=== PATIENT | female | born 1965 | race Caucasian/White ===

== ENCOUNTER → 2017-05-08 12:40 | Outpatient (CLI) | payer BC, SELFPAY ==
[2017-05-08 13:39] LABS: Absolute Lymphocyte Count 1.72 X10^3/ul (0.83-4.51); Absolute Neutrophil Count 3.4 X10^3/uL (2.0-7.7); Basophil# 0.01 X10^3/uL; Basophil% 0.2 % (0-1); Eosinophil# 0.07 X10^3/uL; Eosinophils% 1.3 % (0-5); Hematocrit 32.6 % (37-47); Hemoglobin 10.6 g/dl (12.0-15.0); Lymphocyte # 1.72 X10^3/ul (4.0); Lymphocyte % 31.4 % (19-41); Mean Corp Hgb Conc 32.5 g/gl (32-36); Mean Corpuscular Hgb 29.3 pg (27.0-32.0); Mean Corpuscular Volume 90.1 fL (81-99); Mean Platelet Vol. 10.5 fl (6.2-12.0); Monocyte# 0.31 X10^3/uL; Monocyte% 5.7 % (0-10); Neutrophil # 3.35 X10^3/uL (2.7-7.7); Neutrophil % 61.2 % (47-70); Platelet Count 187 K/mm3 (150-450); RBC Distribution Width CV 13.1 % (11.6-14.6); RBC Distribution Width SD 42.8 fl (35.1-43.9); Red Blood Count 3.62 M/mm3 (4.2-5.4); White Blood Count 5.5 K/mm3 (4.4-11.0)
[2017-05-08 13:40] LABS: POSITIVE COUNT NO; POSITIVE DIFFERENTIAL NO; POSITIVE MORPHOLOGY NO
== END ==
PROVIDERS: Family Provider Family Medicine; PCP Family Medicine; Visit Provider Obstetrics & Gynecology
DX: N93.9 Abnormal uterine and vaginal bleeding, unspecified (principal)
CPT/HCPCS: 36415; 85025

== ENCOUNTER 2017-06-13 07:31 | Day surgery (SDC) | payer BC, SELFPAY ==
--- NOTE | 2017-06-10 08:19 | EKG12_ITS ---
Test Reason : PRE-OP Blood Pressure : / mmHG Vent. Rate : 067 BPM Atrial Rate : 067 BPM P-R Int : 158 ms QRS Dur : 072 ms QT Int : 374 ms P-R-T Axes : 050 015 046 degrees QTc Int : 395 ms Normal sinus rhythm Normal ECG Confirmed by MELO ZUNIGA, NEVAEH ([id number]), staff editor KRISTY LOMELI ([id number]) on 06/11/2017 2:32:48 PM Referred By: Lesa Stewart Confirmed By:NEVAEH ALEJO MD
[2017-06-10 08:53] LABS: Hematocrit 36.9 % (37-47); Hemoglobin 12.1 g/dl (12.0-15.0); Mean Corp Hgb Conc 32.8 g/gl (32-36); Mean Corpuscular Volume 91.6 fL (81-99); Mean Platelet Vol. 10.7 fl (6.2-12.0); Platelet Count 191 K/mm3 (150-450); RBC Distribution Width CV 13.2 % (11.6-14.6); RBC Distribution Width SD 43.8 fl (35.1-43.9); Red Blood Count 4.03 M/mm3 (4.2-5.4); White Blood Count 5.6 K/mm3 (4.4-11.0)
[2017-06-10 08:55] LABS: Scan Indicated on CBC? Y/N NO
[2017-06-10 09:05] LABS: International Normalized Ratio 1.1; Prothrombin Time (Protime)PT. 13.7 SECONDS (11.7-14.9)
[2017-06-10 09:06] LABS: Partial Thromboplast Time 27.6 Seconds (24.1-36.2)
[2017-06-10 09:30] LABS: AST(SGOT) 10 U/L (15-37); Alanine Aminotransfer ALT/SGPT 14 U/L (13-56); Albumin, Serum 3.3 g/dL (3.2-5.0); Alkaline Phosphatase 38 U/L (45-117); Anion Gap 8 (5-15); BUN 33 mg/dL (7-18); BUN/Creat Ratio 14.2 RATIO (10-20); Bilirubin, Direct 0.06 mg/dL (0.00-0.30); Calcium,Total 8.4 mg/dL (8.5-10.1); Chloride 112 mmol/L (98-107); Creatinine, Serum 2.33 mg/dL (0.55-1.02); EST Glomerular Filtration Rate 23 mL/min (>60); Est Glom Filt Rate - Afr Amer 28 mL/min (>60); Globulin 3.7 g/dL (2.2-4.2); Glucose 79 mg/dL (74-106); Potassium 4.5 mmol/L (3.5-5.1); Sodium Level 141 mmol/L (136-145)
[2017-06-13] VITALS (17 sets, daily range): BP systolic 124–170; BP diastolic 72–93; PULSE 45–75; RESP 14–18; TEMP 36.3–37.4; O2SAT 95–100; BMI 23.3
--- NOTE | 2017-06-13 | HYST_PTH ---
PATIENT: ALICIA GAYTAN LOC: [facility] U#:[id number] AGE/SX: 51/F ROOM: RE06/13/[address]: Dr. Lesa Stewart MD : [id number] BED: DIS: 06/14/2017 SPEC #: [id number] RECD: 06/13/17 13:22 STATUS: CUONG GOMEZ #: [id number] JULIANE: 06/13/17 00:[address]: Lesa Stewart DEPT: SURGICAL PATHOLOGY RECD BY: Nicolás Alvares ENTERED: 06/13/17 13:22 SP TYPE: HYSTERECT OTHR DR: Dr. Omid Kline MD Tissues: Uterus, NOS Procedures: Surgery Specimen Level V HEADER OPERATION: Hysterectomy, lap assisted vaginal, bilateral salpingectomy PRE-OP DIAGNOSIS: Abnormal uterine bleeding TISSUE SUBMITTED: Uterus, bilateral fallopian tubes MICROSCOPIC DIAGNOSIS Uterus, hysterectomy: Cervix ? nabothian cysts and mild chronic inflammation. Endometrium ? transition endometrium with focal stromal hyperplasia suggestive of exogenous hormonal defect. Myometrium ? extensive adenomyosis. Right and left fallopian tubes ? no significant pathologic change. AM:tami 06/14/17 COMMENT Case has been reviewed in consultation with Dr. Carrillo who concurs with the above diagnosis. IDC:SJ MICROSCOPIC DESCRIPTION Slides are reviewed. GROSS DESCRIPTION Received in fixative is one container labeled with the patient's name and designated uterus, bilateral fallopian tubes. The specimen consists of a hysterectomy specimen consisting of uterus with cervix, attached left fallopian tube and detached right fallopian tube. The uterus with cervix weighs 198 gm and measures 11 x 8 x 6 cm. The serosal surface is fall, glistening. The ectocervical mucosa is unremarkable. The external os is oval in contour and covered with hemorrhagic material. The endocervical canal measures 4 cm in length and the endocervical mucosa is unremarkable. The endometrial cavity is filled with clotted blood. The endometrial cavity measures 7 cm in length and 4 cm in width. The rest of the endometrium is fall, glistening without any mass lesion. The endometrium measures <0.1 cm in thickness. Sections of the uterine wall do not reveal any mass lesion and measures up to 2.5 cm in thickness. The detached right fallopian tube measures 4 cm in length and 0.6 cm in diameter. The fimbrial end is identified. Sections reveal unremarkable cut surfaces. The left fallopian tube is similar appearance to right and measures 5 cm in length and 0.8 cm in diameter. Sterilizer Machine Operator sections are submitted in eight cassettes as follows: 1 - anterior cervix, 2 - posterior cervix, 3 & 4 - anterior uterine wall, 5 & 6 - posterior uterine wall, 7 ? right fallopian tube, 8 ? left fallopian tube. / BEATRIZ:tami 06/13/17 TC:5 CPT: 80376
[2017-06-13 07:57] LABS: Internal QC Validated? YES +Cl - CLEAR BKGD; Pregnancy, Urine Negative Negative
--- NOTE | 2017-06-13 08:12 | PCM.HPOB.BLA ---
- Problem List (1) Abnormal uterine bleeding Status: Acute Comment: Mirena IUD since 2013 History and Physical Date of Admission: 06/13/17
[2017-06-13] MEDS: Bupivacaine 0.25% 30 ML Vial (09:45)
[2017-06-13] MEDS: Vasopressin 20 UNITS/ML Vial (10:02)
[2017-06-13] MEDS: Acetaminophen 500 MG Tablet 1000 MG PO ×2 (15:40→21:20)
[2017-06-13] MEDS: oxyCODONE 5 MG Tablet PO (19:21)
[2017-06-13] MEDS: Lactated Ringers 1,000 ML 125 ML IV (21:20)
[2017-06-13] MEDS: Heparin Injection 5,000 UNITS/ML Syringe 5000 UNITS SC ×2 (21:20→21:57)
[2017-06-14 03:00] VITALS: BP 157/91; PULSE 73; RESP 16; TEMP 36.6; O2SAT 99
[2017-06-14] MEDS: oxyCODONE 5 MG Tablet PO (04:39)
[2017-06-14] MEDS: Acetaminophen 500 MG Tablet 1000 MG PO (05:42)
[2017-06-14 06:10] LABS: Hematocrit 28.4 % (37-47); Hemoglobin 9.5 g/dl (12.0-15.0); Mean Corp Hgb Conc 33.5 g/gl (32-36); Mean Corpuscular Hgb 30.3 pg (27.0-32.0); Mean Corpuscular Volume 90.4 fL (81-99); Mean Platelet Vol. 10.6 fl (6.2-12.0); Platelet Count 143 K/mm3 (150-450); RBC Distribution Width CV 13.7 % (11.6-14.6); RBC Distribution Width SD 45.1 fl (35.1-43.9); Red Blood Count 3.14 M/mm3 (4.2-5.4); White Blood Count 4.9 K/mm3 (4.4-11.0)
[2017-06-14 06:13] LABS: Scan Indicated on CBC? Y/N NO
--- NOTE | 2017-06-14 06:53 | PCM.OPRPT ---
Problem List (1) Abnormal uterine bleeding Status: Acute Comment: Mirena IUD since 2013 Report of Operation Date of Procedure: 06/13/17 Pre-Operative Diagnosis: aub Post-Operative Diagnosis: same Surgery/Procedure Performed:: salo bs cystoscopy federal appellate law clerk: Denia Blackwood Type of Anesthesia:: General Special Medications: none Specimen's removed: uterus tubes Drains: knott Estimated Blood Loss (mL): 100 Fluids Replaced: crystalloid Description of Procedure: Patient received preoperative antibiotics and SCDs were on preoperatively. Patient was taken back to the operating room and placed in the dorsal lithotomy position. General anesthesia was induced and patient was prepped and draped in normal sterile fashion. Uterine manipulator was placed inside the uterus and Knott catheter placed in the bladder. The umbilicus was grasped with towel clamps and an intraumbilical incision was made after injecting with quarter percent Marcaine and a Veress needle entered into the abdomen confirmed to be intra-abdominal with a low opening pressure. Abdomen was insufflated with CO2 gas and the Veress needle removed and the 5 mm trocar was placed under direct visualization without complication. Right and left lower quadrants were transilluminated and injected with quarter percent Marcaine and 5 mm ports placed under direct visualization. Pelvis was well visualized see operative findings for additional information. a significantly enlarged right polycystic kidney was seen but no other abnormalities were seen. Bilateral fallopian tubes were identified and transected with the LigaSure device across the mesosalpinx to the level of the utero-ovarian ligament which was also transected with the LigaSure device. The broad ligament was opened up by transecting the round ligament bilaterally and skeletonizing the uterine vessels bilaterally and creating a bladder flap using the LigaSure device. The uterine arteries were transected bilaterally with good visualization of the bladder and the ureters were seen to be inferior lateral to the operative area. Attention was then paid to the vaginal portion of the procedure and the cervix was grasped with Sylvia clamps and circumferentially injected with dilute vasopressin. A circumferential incision was made and the vaginal mucosa was mobilized off posteriorly and the cul-de-sac entered into sharply and a longneck speculum placed. The anterior cul-de-sac was then identified and entered into sharply. The uterosacral ligaments were clamped cut and suture ligated with 0 Monocryl bilaterally followed by the cardinal ligaments which were clamped cut and suture ligated bilaterally with 0 Monocryl. The uterus serially descended and was removed without difficulty with minimal morcellation. Pelvic sidewall pedicles were checked and noted to have excellent hemostasis. postrior peritoneum closed and 2 2-0 pds sutures modified mccalls stitches were placedThe vaginal mucosa was reapproximated incorporating the posterior peritoneum. This was reapproximated using 0 Vicryl [id number]-[id number]-pyrad sutures. Excellent hemostasis was noted. The cystoscopy was then performed and bilateral ureteral strong spray was noted and the bladder was noted to have no abnormality or lesions seen. Knott catheter was replaced and then attention paid to the abdominal portion of the procedure again. The pelvis and cul-de-sac was well visualized and no significant active bleeding noted. Pressure was taken down and the areas visualized and noted of excellent hemostasis. All ports were removed under direct visualization without complication and the abdomen was desufflated of air. The instruments removed from the abdomen and the vagina vaginal sweep was negative. Port sites on the abdomen were closed with 4-0 Monocryl interrupted sutures and Steri's and windows were applied. She was awoken and taken recovery in stable condition. Grafts/Implants Used: none - Complications none - Admit VTE Documentation VTE Present on Admission: No VTE Mechan Device Prophylaxis: SCD's
--- NOTE | 2017-06-14 07:05 | PCM.DC.VHY ---
Discharge Diet: No Restrictions Discharge Activity: Return to Normal Activity, May Not Drive, May Shower May resume sexual activity in: 6-8 weeks Call your doctor if your incision/area has: Continuous Slow Oozing, Sudden Increased Bleeding, Increased Pain/ Swelling, Increased Redness, Foul Smelling Discharge Call your doctor if you observe: Fever of 101 or Higher, Inability to urinate, Inability to have a bowel movement, Using more than one pad per hour Allergies/Adverse Reactions: Allergies No Known Allergies Allergy (Verified 06/06/17 10:37) Medications to take at Discharge alprazolam 0.25 mg tablet 0.25 mg PO BID PRN 01/31/17 polysaccharide iron complex 150 mg iron capsule 150 mg PO QDAY cap 01/31/17 captopril 12.5 mg tablet 12.5 mg PO BID 02/11/17 Cyanocobalamin (Vitamin B-12) [Vitamin B-12] 1,000 mcg PO DAILY 06/06/17 CycloSPORINE Ophthalmic [Restasis Ophthalmic] 1 drop OPHTHALMIC BID 06/13/17 Oxycodone HCl/Acetaminophen [Percocet 5-325] 2 tablet PO Q4H PRN PRN 7 Days #28 tablet 06/14/17 The following prescriptions were given: Oxycodone HCl/Acetaminophen [Percocet 5-325] 2 tablet PO Q4H PRN PRN 7 Days #28 tablet PRN Reason: Moderate-Severe pain Primary Care Physician: Omid Kline [Primary Care Provider] - Please Follow Up With: Lesa Stewart MD - [phone]
[2017-06-14 07:18] VITALS: O2SAT 98
[2017-06-14 07:54] VITALS: BP 173/100; PULSE 87; RESP 16; TEMP 37.1; O2SAT 98
--- NOTE | 2017-06-14 08:00 | NURSING ---
Pt. takes Captopril 12.5 mg from home supply.
[2017-06-14 09:51] VITALS: BP 117/79; PULSE 66; RESP 16; TEMP 36.7; O2SAT 98
[2017-06-14] MEDS: Heparin Injection 5,000 UNITS/ML Syringe 5000 UNITS SC (10:00)
== END 2017-06-14 12:35 | disposition home or self-care (01) ==
LOC: SDC 07:31 → AC 07:32 → MS3 12:03
PROVIDERS: Anesthesiology; Family Provider Family Medicine; PCP Family Medicine; Visit Provider Obstetrics & Gynecology
PROC: 0UT9FZZ Resection of Uterus, Via Natural or Artificial Opening With Percutaneous Endoscopic Assistance (ICD-10-PCS; CPT 58550; principal; 2017-06-13 08:45)
DX: N80.0 Endometriosis of uterus (principal); N72 Inflammatory disease of cervix uteri; I10 Essential (primary) hypertension; D64.9 Anemia, unspecified; F41.9 Anxiety disorder, unspecified; Z79.899 Other long term (current) drug therapy
CPT/HCPCS: 58550; 36415; 80048; 80076; 81025; 85027; 85610; 85730; 86850; 86900; 88307; 93005; J7120; J2405

== ENCOUNTER → 2017-06-25 18:10 | Outpatient (CLI) | payer BC, SELFPAY | PROVIDERS: Family Provider Family Medicine; PCP Family Medicine; Visit Provider Nurse Practitioner Women's Health | DX: N39.0 Urinary tract infection, site not specified (principal) | CPT/HCPCS: 87086; 87088 ==

== ENCOUNTER → 2017-08-05 12:42 | Outpatient (CLI) | payer BC, SELFPAY ==
--- NOTE | 2017-08-05 12:42 | DT_ITS ---
This patient was seen during an EMR downtime July 29, 2017 - August 05, 2017. This patient may have a combination of paper and electronic documentation or all paper documentation. All documentation is viewable within the e-chart portion of [facility] for each patient visit.
== END ==
PROVIDERS: Family Provider Family Medicine; PCP Family Medicine; Visit Provider Nurse Practitioner Women's Health
DX: N89.8 Other specified noninflammatory disorders of vagina (principal)
CPT/HCPCS: 87070; 87205

== ENCOUNTER → 2017-10-15 08:03 | Outpatient (CLI) | payer BC, SELFPAY | PROVIDERS: Family Provider Family Medicine; PCP Family Medicine; Visit Provider Obstetrics & Gynecology | DX: N83.209 Unspecified ovarian cyst, unspecified side (principal) | CPT/HCPCS: 76830; 76856 ==

== ENCOUNTER → 2018-07-31 08:58 | Outpatient (CLI) | payer BC, SELFPAY ==
[2018-07-18 08:35] VITALS: BMI 23.1
--- NOTE | 2018-07-31 09:02 | US_ITS ---
STUDY: ULTRASOUND BREAST - RIGHT REASON FOR EXAM: Female, 52 years old. Abnormal mammogram. Right breast mastitis. TECHNIQUE: Axial and longitudinal images of the RIGHT breast were performed with a high resolution ultrasound transducer. COMPARISON: Comparison is made with prior mammogram done earlier today. FINDINGS: RIGHT Breast: The lateral half of the right breast was examined by ultrasound. There is a 1.8 cm x 1.6 cm x 1.1 cm cyst at the 7:00 position of the breast. There is also evidence of a 1.1 cm x 1.1 cm x 1.1 cm cyst at the 12:00 position of the breast. At 11:00 position of the breast, there is also evidence of a 9 mm x 10 mm x 9 mm cyst. At the 12:00 position of the breast at 1 cm from the nipple, is a 5 mm x 6 mm x 4 mm hypoechoic nodule most likely represents a cyst with low-level echoes within it. IMPRESSION: Multiple cysts in the upper outer quadrant of the right breast as described. ASSESSMENT CATEGORY: BIRADS Category 2: Benign. A letter regarding these results will be sent to the patient by the facility within 30 days. Electronically Signed: Say Alberto, at 12:59 EDT , Service support , STUDY: ULTRASOUND BREAST - LEFT REASON FOR EXAM: Female, 52 years old. Palpable abnormality. TECHNIQUE: Axial and longitudinal images of the LEFT breast were performed with a high resolution ultrasound transducer. COMPARISON: Comparison is made with prior mammogram done earlier today. FINDINGS: LEFT Breast: In the retroareolar region of the breast, there is a 6 cm x 7.5 cm x 3.9 cm cyst with debris within it. There is also evidence of a complex cyst at the 10:00 position of the breast measuring 1.1 cm x 1 cm x 0.9 cm. A complex cyst is also seen at the 10:00 position of breast measuring 1.7 cm x 1.9 cm x 1.4 cm. US/Breast Complete Unilateral IMPRESSION: Multiple cysts in the breast as described. Low-level echoes are seen. Follow-up is recommended. ASSESSMENT CATEGORY: BIRADS Category 2: Benign. A letter regarding these results will be sent to the patient by the facility within 30 days. Electronically Signed: Say Alberto, at 13:00 EDT , Service support ,
--- NOTE | 2018-07-31 09:02 | BI_ITS ---
MAMMOGRAPHY - BILATERAL DIAGNOSTIC REASON FOR EXAM: Female, 52 years old. Left breast pain and swelling. Patient on antibiotics for mastitis. PERTINENT HISTORY: Non-contributory. TECHNIQUE: Digital bilateral breast roque (3D mammographic acquisition) in the CC and MLO projections. 2-D mediolateral oblique (MLO) and craniocaudad (CC) views of both breasts were obtained. CAD: Full Field Digital Mammography with Computer Added Detection was performed. COMPARISON: Comparison is made with prior outside examination dated September 14, 2016. FINDINGS: Breast Composition: The breasts are extremely dense, which lowers the sensitivity of mammography. Once again, nodular densities are seen in both breast. The largest is in the upper outer aspect of the left breast. This measures 5.3 cm x 4 cm. No other significant abnormalities are identified. There has been no significant change since the prior study. BI/DIAG MAMM W/CAD, BILAT IMPRESSION: Bilateral nodular densities. Correlation with ultrasound is recommended. ASSESSMENT CATEGORY: BIRADS Category 0: Incomplete. Need additional imaging evaluation. A letter regarding these results will be sent to the patient by the facility within 30 days. Approximately 10% of breast cancers are not detected by mammography. A normal mammogram should not delay biopsy of a clinically suspicious abnormality. Electronically Signed: Say Alberto, at 9:49 EDT , Service support ,
== END ==
PROVIDERS: Family Provider Family Medicine; PCP Family Medicine; Referring Provider Nurse Practitioner Women's Health; Visit Provider Nurse Practitioner Women's Health
DX: N61.0 Mastitis without abscess (principal)
CPT/HCPCS: 76641; 76642; 77062; 77066; G0279